=== PATIENT | female | born 1970 | race Caucasian/White ===

== ENCOUNTER 2021-12-17 15:14 | Emergency (ER) | payer OTHER, SELFPAY ==
--- NOTE | ~2021-12-17 | XR_ITS ---
XR foot LT min 3V 12/17/2021 15:41 INDICATION: Left foot pain PROCEDURE: 4 views left foot COMPARISON: No prior studies for comparison. FINDINGS: Fracture, dislocation or subluxation is not identified. The soft tissues appear within norm al limits. No foreign bodies are identified. IMPRESSION: 1: NO ACUTE BONE OR JOINT ABNORMALITY IDENTIFIED. Reviewed, dictated and finalized at location B.
[2021-12-17 15:24] VITALS: BP 153/95; PULSE 91; RESP 16; TEMP 37.4; O2SAT 99
--- NOTE | 2021-12-17 15:47 | ED.LOWEXIN ---
HPI - Extremity Injury (Lower) General Chief Complaint: Extremity Injury, Lower Stated Complaint: left foot pain Time Seen by Provider: 12/17/21 15:30 Source: patient Mode of arrival: ambulatory Limitations: no limitations History of Present Illness HPI Narrative: Ms. Clement is a 51-year-old female patient presenting to clinic today with complaints of right foot pain. She reports that she twisted/inverted her right foot on the stairs. She reports pain to the top and to the bottom of the right foot. Has mild swelling Related Data Home Medications Medication Instructions Recorded Confirmed aspirin 325 mg tablet 325 mg PO DAILY 12/17/21 12/17/21 Allergies Allergy/AdvReac Type Severity Reaction Status Date / Time codeine AdvReac Vomiting Verified 12/17/21 15:42 Review of Systems Review of Systems: Pertinent positives per HPI. Patient denies any fever, chills, rash, headache, visual changes, dizziness, cough, runny nose, sore throat, shortness of breath, chest pain, palpitations, nausea, vomiting, diarrhea, constipation, abdominal pain, or any urinary issues. PMFSH Comments At the time of my signature, I reviewed and agree with the nursing past medical, surgical, social, and family history. There is no relevant family history pertinent to the patient complaint. Exam Narrative: General: Well-developed, well nourished, in no apparent distress Head: Normocephalic, atraumatic. Cardio: Regular rate and rhythm, s1 and s2 normal, no murmur appreciated. Resp: Clear to auscultation bilaterally, no rhonchi, rales, wheezing or rubs. Musculoskeletal: No deformity,tender to palpation over the dorsal and plantar aspect of the midfoot and as well as over the fifth and fourth metatarsals, pain with dorsal flexion and plantar flexion of the foot, peripheral pulse strong, mild swelling and bruising noted over the dorsal foot, no cyanosis, normal gait and station Course Course Emergency Course: Portions of this record may have been created with voice recognition software. Level of Care: Express Care Visit Vital Signs Vital signs: Vital Signs Temperature 37.4 C 12/17/21 15:24 Pulse Rate 91 12/17/21 15:24 Respiratory Rate 16 12/17/21 15:24 Blood Pressure 153/95 H 12/17/21 15:24 Pulse Oximetry 99 12/17/21 15:24 Oxygen Delivery Room Air 12/17/21 15:24 Temperature 37.4 C 12/17/21 15:24 Pulse Rate 91 12/17/21 15:24 Respiratory Rate 16 12/17/21 15:24 Blood Pressure 153/95 H 12/17/21 15:24 Pulse Oximetry 99 12/17/21 15:24 Oxygen Delivery Room Air 12/17/21 15:24 Vital signs reviewed MDM - Extremity Injury (Lower) MDM Narrative Medical decision making narrative: At the time of visit patient is resting comfortably on the exam table. X-ray was negative for any fracture or malalignment of the right foot. I suspect patient has a foot sprain. Supportive measures were discussed with the patient she voiced understanding of discharge instructions and agrees to treatment plan Differential Diagnosis Differential diagnosis: Likely other (Foot fracture, foot sprain, contusion) Discharge Plan Discharge Clinical Impression: Foot sprain Patient Disposition: Home, Self-Care Condition: Stable Instructions: Antibiotic Form, Metatarsalgia (DC) Additional Instructions: X-rays negative for any fracture or malalignment of the right foot Rest, ice, and elevate May take Tylenol/Motrin as needed for pain Wear Antonio wrap as prescribed Follow-up with your PCP in 3 to 5 days if symptoms persist or sooner if they worsen Prescriptions: No Action aspirin 325 mg Tablet 325 mg PO DAILY Follow-up/Referrals: UNKNOWN,DOCTOR [Primary Care Provider] - Time of Disposition: 16:12 Quality NIHSS Nursing Documentation ED NIHSS nursing documentation: reviewed/agree
== END 2021-12-17 16:18 | disposition home or self-care (01) ==
PROVIDERS: Emergency Provider Nurse Practitioner Family
DX: S93.602A Unspecified sprain of left foot, initial encounter (principal); X50.9XXA Other and unspecified overexertion or strenuous movements or postures, initial encounter; Z79.82 Long term (current) use of aspirin
CPT/HCPCS: 73630; 99203; G0463